=== PATIENT | male | born 1995 ===

== ENCOUNTER 2016-10-17 00:17 | Emergency (ER) | payer SELFPAY ==
[2016-10-17 00:28] VITALS: BP 134/91; PULSE 87; RESP 18; TEMP 97.7; O2SAT 98
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
== END 2016-10-17 01:33 | disposition home or self-care (01) ==
LOC: H.ER 00:17
DX: F16.10 Hallucinogen abuse, uncomplicated (principal); F17.200 Nicotine dependence, unspecified, uncomplicated

== ENCOUNTER 2017-08-23 07:37 | Emergency (ER) | payer MEDICAID ==
[2017-08-23 07:45] VITALS: TEMP 99; O2SAT 98
[2017-08-23 08:05] VITALS: BMI 21.5
[2017-08-23 08:07] VITALS: RESP 18
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
[2017-08-23 10:23] VITALS: BP 136/86; PULSE 82
--- NOTE | 2017-08-23 11:11 | RAD ---
PROCEDURE: Left Hand Radiographs. HISTORY: left hand pain COMPARISON: 03/30/2008 FINDINGS: BONES: Bone alignment and mineralization are normal. There is no acute displaced fracture or bone destruction. JOINTS: Normal. No osteoarthritic changes. SOFT TISSUES: Normal. OTHER FINDINGS: None. IMPRESSION: No acute fracture or dislocation.
--- NOTE | 2017-08-23 11:23 | RAD ---
PROCEDURE: Right small finger radiographs. HISTORY: finger injury pain COMPARISON: None. TECHNIQUE: AP radiograph of the right hand, as well as spot oblique and lateral images of small finger were obtained. FINDINGS: RIGHT SMALL FINGER: There is cortical step-off in the posterior base of the distal phalanx of the little finger. Remainder of the right hand (as seen on the AP view) grossly unremarkable. JOINTS: Normal. SOFT TISSUES: Normal. OTHER FINDINGS: None. IMPRESSION: Suspect acute nondisplaced fracture in the posterior base of the distal phalanx of the little finger.
== END 2017-08-23 10:23 | disposition home or self-care (01) ==
LOC: H.ER 07:37
DX: S00.83XA Contusion of other part of head, initial encounter (principal); S62.606A Fracture of unspecified phalanx of right little finger, initial encounter for closed fracture; Y04.0XXA Assault by unarmed brawl or fight, initial encounter; J45.909 Unspecified asthma, uncomplicated

== ENCOUNTER 2017-09-12 17:50 | Emergency (ER) | payer MEDICAID ==
[2017-09-12 17:50] VITALS: BMI 21.5
[2017-09-12] MEDS ORDERED: Sodium Chloride 0.9% 1,000 ML IV STA (18:12)
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
[2017-09-12 18:34] LABS: BASO % 0.2 % (0.0-2.0); EOS # 0.2 K/uL (0.0-0.7); EOS % 1.2 % (0.0-4.0); HEMOGLOBIN 16.2 g/dL (12.0-18.0); LYMPH # 3.2 K/uL (1.0-4.3); LYMPH % 22.9 % (20.0-40.0); MEAN CELL VOLUME 91.5 fl (80.0-94.0); MEAN CORPUSCULAR HEMOGLOBIN 30.8 pg (27.0-31.0); MEAN CORPUSCULAR HGB CONC 33.6 g/dL (33.0-37.0); MEAN PLATELET VOLUME 7.7 fl (7.2-11.7); MONO # 0.9 K/uL (0.0-0.8); MONO % 6.5 % (0.0-10.0); NEUT # 9.7 K/uL (1.8-7.0); NEUT % 69.2 % (50.0-75.0); NRBC % 0.1 % (0.0-0.0); RBC 5.25 Mil/uL (4.40-5.90); RED CELL DISTRIBUTION WIDTH 12.2 % (11.5-14.5); WHITE BLOOD COUNT 14.1 K/uL (4.8-10.8)
[2017-09-12 18:47] LABS: ALB/GLOB RATIO 1.3 (1.0-2.1); ALBUMIN 4.8 g/dL (3.5-5.0); ALT/SGPT 37 U/L (21-72); AST/SGOT 33 U/L (17-59); BLOOD UREA NITROGEN 19 mg/dl (9-20); CALCIUM 10.1 mg/dL (8.4-10.2); GFR AFRICAN-AMERICAN > 60; GFR NON-AFRICAN AMERICAN > 60
[2017-09-12 20:47] VITALS: TEMP 97.1
--- NOTE | 2017-09-12 21:36 | ED PDOC ---
- Laboratory Results Result Diagrams: 09/12/17 18:32 09/12/17 18:32 - ECG O2 Sat by Pulse Oximetry: 100 Medical Decision Making Medical Decision Makin Case endorsed to me from ALONZO Perez at 1999, pending sobriety. VS and labs reviewed. 2199 On re-evaluation, patient is awake, alert and oriented x3 in no acute distress. Patient is speaking in full sentences, is calm, cooperative and follows direction well. Repeat VS BP 124/65 P 93 100%RA. Patient able to stand up and ambulate with a normal gait. Patient's mother is here in the ER and is willing to take the patient safely home and she states that she will continue to monitor him. Disposition - Clinical Impression Clinical Impression: Substance abuse - POA Present On Arrival: None - Disposition Disposition: Routine/Home Disposition Time: 22:00 Condition: STABLE Instructions: Drug Abuse and Drug Addiction (DC) Forms: [facility] (Mongolian) - PA / COLLECTION SYSTEMS ADMINISTRATOR / Resident Statement MD/DO has reviewed & agrees with the documentation as recorded.
[2017-09-12 21:58] VITALS: BP 124/65; PULSE 93; RESP 20
[2017-09-12 22:00] VITALS: O2SAT 100
--- NOTE | 2017-09-13 09:00 | CARD ---
APPROVED REPORT EKG Measurement Heart [id number] HI [id number] <Conclusion> Sinus tachycardia Left axis deviation Minimal voltage criteria for LVH, may be normal variant Abnormal ECG
--- NOTE | 2017-09-13 09:34 | RAD ---
HISTORY: substance abuse COMPARISON: No prior. FINDINGS: LUNGS: Poor inspiration with low lung volumes and minor crowded bronchovascular markings. PLEURA: No significant pleural effusion identified, no pneumothorax apparent. CARDIOVASCULAR: Normal. OSSEOUS STRUCTURES: No significant abnormalities. VISUALIZED UPPER ABDOMEN: Normal. OTHER FINDINGS: None. IMPRESSION: Poor inspiration with low lung volumes and minor crowded bronchovascular markings.
== END 2017-09-12 21:49 | disposition home or self-care (01) ==
LOC: H.ER 17:50
DX: F19.10 Other psychoactive substance abuse, uncomplicated (principal)
CPT/HCPCS: 71045; 80053; 80320; 82948; 84484; 85025; 93005; 96372; 99285; J1630; J2060; J7040

== ENCOUNTER 2018-01-07 15:29 | Emergency (ER) | payer MEDICAID ==
[2018-01-07 15:29] VITALS: BMI 21.5
[2018-01-07 16:39] VITALS: BP 142/70; PULSE 91; RESP 18; TEMP 98.7; O2SAT 99
--- NOTE | 2018-01-07 16:56 | ED PDOC ---
HPI: Allergic Reaction Time Seen by Provider: 01/07/18 16:40 Chief Complaint (Nursing): Abnormal Skin Integrity Chief Complaint (Provider): Hives History Per: Patient History/Exam Limitations: no limitations Onset/Duration Of Symptoms: Days (x1) Current Symptoms Are (Timing): Still Present Additional Complaint(s): 22 year old male presents to the ED for evaluation of hives since yesterday evening. He states he was in the shower when he first noticed bumps which have been coming and going since their onset. Patient reports they are itchy, but not painful, and to help he last took 25 mg of Benadryl at 05:30 this morning. Otherwise, (-) new exposures, (-) shortness of breath, (-) fever, (-) chills, (- ) facial swelling, (-) nausea, (-) vomiting, (-) abdominal pain. Patient does not have a history of allergic reactions. PMD: none provided Past Medical History Reviewed: Historical Data, Nursing Documentation, Vital Signs Vital Signs: Last Vital Signs Temp 98.7 F 01/07/18 16:36 Pulse 91 H 01/07/18 16:36 Resp 18 01/07/18 16:36 BP 142/70 01/07/18 16:36 Pulse Ox 99 01/07/18 16:36 - Medical History PMH: Asthma (Well controlled, currently not on any medications.), Fractures ( Nasal) - Surgical History Surgical History: No Surg Hx - Family History Family History: States: Unknown Family Hx - Social History Current smoker - smoking cessation education provided: Yes (4-5 cigarettes daily ) Alcohol: None Drugs: Cannabis, Cocaine - Immunization History Hx Tetanus Toxoid Vaccination: Yes (2014) - Home Medications Home Medications: Ambulatory Orders Medication Instructions Recorded Cephalexin [Keflex] 500 mg PO BID #14 cap 05/05/15 Ibuprofen [Motrin] 600 mg PO Q8 #20 tab 05/27/15 Tramadol Hydrochloride [Tramadol] 50 mg PO BID #7 tab 06/04/15 Sulfamethoxazole/Trimethoprim 1 tab PO BID #14 tab 06/05/15 [Bactrim DS 800 mg-160 mg] oxyCODONE/Acetaminophen [Percocet 1 ea PO Q6H PRN #15 tab 03/08/16 5/325 mg Tab] Penicillin VK [Pen-Vee K] 1 tab PO QID #28 tab 07/14/16 Ibuprofen [Motrin] 600 mg PO Q6 PRN #20 tab 08/23/17 DiphenhydrAMINE [Benadryl] 50 mg PO Q6 #20 cap 01/07/18 Famotidine [Pepcid] 40 mg PO DAILY #5 tablet 01/07/18 predniSONE [predniSONE Tab] 40 mg PO DAILY #10 tab 01/07/18 - Allergies Allergies/Adverse Reactions: Allergies Allergy/AdvReac Type Severity Reaction Status Date / Time No Known Allergies Allergy Verified 01/07/18 16:36 Review of Systems ROS Statement: Except As Marked, All Systems Reviewed And Found Negative Constitutional: Negative for: Fever, Chills ENT: Negative for: Other (facial swelling) Respiratory: Negative for: Shortness of Breath Gastrointestinal: Negative for: Nausea, Vomiting, Abdominal Pain Skin: Positive for: Other (diffuse itchy bumps, without pain) Physical Exam - Reviewed Nursing Documentation Reviewed: Yes Vital Signs Reviewed: Yes - Physical Exam Comments: GENERAL APPEARANCE: Patient is awake, alert, oriented x 3, in no acute distress. Eating chips, drinking soda. SKIN: Diffuse erythematous hives. Otherwise (-) excoriations, (-) drainage (-) crusting. HENT: (-) conjunctival injection, (-) chemosis. Oropharynx: clear (-) tongue or lip swelling, (-) tonsillar exudates, (-) erythema. Airway: patent (-) stridor, (-) hoarseness. Mucous membranes moist. Nares: Patent (-) rhinorrhea. No facial swelling. NECK: Supple, FROM (-) lymphadenopathy, (-) tenderness. CARDIOVASCULAR: Normal rate and rhythm. (-) murmur, (-) gallop. CHEST: (-) rales, (-) wheezing, (-) dyspnea, (-) stridor. Breath sounds equal bilaterally. Non labored, even respirations. Speaking in full sentences. ABDOMEN: Soft. (-) tenderness, (-) distention, (-) guarding NEURO: Mental status as above, normal strength and tone. Gait steady, speech clear. (-) focal findings - ECG O2 Sat by Pulse Oximetry: 99 (RA) Pulse Ox Interpretation: Normal Disposition - Clinical Impression Clinical Impression: Urticaria, Allergic reaction - Patient ED Disposition Is Patient to be Admitted: No Counseled Patient/Family Regarding: Diagnosis, Need For Followup, Rx Given - Disposition Referrals: [facility] [Outside] Disposition: Routine/Home Disposition Time: 17:37 Condition: IMPROVED Additional Instructions: FOLLOW UP WITH PMD/CLINIC IN 1-2 DAYS WITHOUT FAIL. RETURN TO ED WITH ANY NEW OR WORSENING SYMPTOMS. Prescriptions: DiphenhydrAMINE [Benadryl] 50 mg PO Q6 #20 cap Famotidine [Pepcid] 40 mg PO DAILY #5 tablet predniSONE [predniSONE Tab] 40 mg PO DAILY #10 tab Instructions: Hives, Allergy Skin Testing Forms: [employer] (Tamazight) Print Language: SAMMARINESE - POA Present On Arrival: None Medical Decision Making Medical Decision Making: Time: 16:45 Initial Impression: allergic reaction, hives Initial Plan: --Benadryl 50 mg PO (Not driving home) --Pepcid 40 mg PO --Prednisone 60 mg PO 1735 On re-evaluation, patient reports improvement of symptoms. On exam, patient remains AAOx3, in no acute distress. On exam, neck is supple, lungs CTA, cardiac RRR, abdomen is soft and non-tender, neuro exam shows no focal findings. VSS, stable for discharge. Diagnostic results d/w the patient in great detail. Dx of hives, allergic reaction d/w the patient. Based on history, exam and diagnostic results plan will be for discharge and outpatient follow up. Advised to follow up with primary care physician/clinic in 1-2 days without fail. Advised to take medication as prescribed. Return to the emergency room at any time for any new or worsening symptoms. Patient states he fully agrees with and understands discharge instructions. States that he agrees with the plan and disposition. Verbalized and repeated discharge instructions and plan. I have given the patient opportunity to ask any additional questions. Scribe Attestation: Documented by Cyndie Jeter, acting as a scribe for Taylor Schulte PA-C. Provider Scribe Attestation: All medical record entries made by the Scribe were at my direction and personally dictated by me. I have reviewed the chart and agree that the record accurately reflects my personal performance of the history, physical exam, medical decision making, and the department course for this patient. I have also personally directed, reviewed, and agree with the discharge instructions and disposition.
== END 2018-01-07 17:49 | disposition home or self-care (01) ==
LOC: H.ER 15:29
DX: T78.40XA Allergy, unspecified, initial encounter (principal); L50.0 Allergic urticaria

== ENCOUNTER 2018-05-16 18:06 | Emergency (ER) | payer MEDICAID ==
[2018-05-16 18:06] VITALS: BMI 21.5
[2018-05-16 18:19] VITALS: BP 141/96; PULSE 106; RESP 20; TEMP 98; O2SAT 99
--- NOTE | 2018-05-16 20:04 | ED PDOC ---
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 Patient was brought in to ED for evaluation because he was found [place] today. He had no medical or psychiatric complaints on arrival. Patient is requesting to be discharged so he can make a local bus on time. He does admit to drug use earlier today. Patient is otherwise pleasant and cooperative. PMD: none provided Past Medical History Reviewed: Historical Data, Nursing Documentation, Vital Signs Vital Signs: Last Vital Signs Temp 98 F 05/16/18 18:15 Pulse 106 H 05/16/18 18:15 Resp 20 05/16/18 18:15 BP 141/96 H 05/16/18 18:15 Pulse Ox 99 05/16/18 18:15 - Medical History PMH: Asthma, Fractures (Nasal) Denies: Diabetes, Hepatitis, HIV, HTN, Chronic Kidney Disease, Seizures, Sexually Transmitted Disease - Surgical History Surgical History: No Surg Hx - Family History Family History: States: Unknown Family Hx - Social History Current smoker - smoking cessation education provided: Yes Ex-Smoker (has not smoked in the last 12 months): No Drugs: Cannabis, Other (amphetamines and weed) - Immunization History Hx Tetanus Toxoid Vaccination: No Hx Influenza Vaccination: No Hx Pneumococcal Vaccination: No - Home Medications Home Medications: Ambulatory Orders Medication Instructions Recorded No Known Home Med 05/06/18 - Allergies Allergies/Adverse Reactions: Allergies Allergy/AdvReac Type Severity Reaction Status Date / Time No Known Allergies Allergy Verified 05/16/18 18:15 Review of Systems ROS Statement: Except As Marked, All Systems Reviewed And Found Negative Psych: Positive for: Psychosis Physical Exam - Reviewed Nursing Documentation Reviewed: Yes Vital Signs Reviewed: Yes - Physical Exam Appears: Positive for: No Acute Distress Head Exam: Positive for: ATRAUMATIC, NORMOCEPHALIC Skin: Positive for: Normal Color, Warm, Dry Eye Exam: Positive for: Normal appearance, EOMI, PERRL Cardiovascular/Chest: Positive for: Regular Rate, Rhythm. Negative for: Murmur Respiratory: Positive for: Normal Breath Sounds. Negative for: Respiratory Distress Gastrointestinal/Abdominal: Positive for: Normal Exam, Soft. Negative for: Tenderness Extremity: Positive for: Normal ROM. Negative for: Pedal Edema, Deformity Neurologic/Psych: Positive for: Alert, Oriented (x3). Negative for: Motor/Sensory Deficits - ECG O2 Sat by Pulse Oximetry: 99 (RA) Pulse Ox Interpretation: Normal Medical Decision Making Medical Decision Making: Time: 1921 Initial Impression: 23 yo brought in for evaluation of possible substance abuse with no active complaints Time: 1945 --Patient is clinically sober for discharge. Provider reinforced need to abstain from hallucinogenic and illicit substances. Diagnosis substance abuse. -- Scribe Attestation: Documented by Venice Arroyo, acting as a scribe for Jeramy Neves MD Provider Scribe Attestation: All medical record entries made by the Scribe were at my direction and personally dictated by me. I have reviewed the chart and agree that the record accurately reflects my personal performance of the history, physical exam, medical decision making, and the department course for this patient. I have also personally directed, reviewed, and agree with the discharge instructions and disposition. Disposition - Clinical Impression Clinical Impression: Polysubstance abuse - Disposition Disposition Time: 19:46 Condition: STABLE Instructions: Polysubstance Abuse Forms: [employer] (Kyrgyz)
== END 2018-05-16 19:48 | disposition home or self-care (01) ==
LOC: H.ER 18:06
DX: F19.10 Other psychoactive substance abuse, uncomplicated (principal)